=== PATIENT | female | born 1945 | race Two or more races ===

== ENCOUNTER 2024-07-06 07:34 | Day surgery (SDC) | payer MEDICARE, MEDICAID ==
[~2024-07-06] VITALS: Ht 162.6 cm; Wt 77.1 kg
[2024-07-06] VITALS (8 sets, daily range): BP systolic 124–152; BP diastolic 52–106; PULSE 66–82; RESP 12–21; TEMP 98.1; O2SAT 92–100
[~2024-07-06 07:34] MED LIST: BACL10TA PO; GABA-1308 PO; GLIM-38 PO; HYDR-4798 PO; LEVO50TA7 PO; LINA5TAB PO; SIMV40TA18 PO
[2024-07-06] MEDS ORDERED: IODIXANOL 320MG/ML 100ML BTL IV ONE (07:35)
[2024-07-06] MEDS: HYDROcodone-ACET 10/325MG TAB ONE (08:51)
[2024-07-06] MEDS ORDERED: HEPARIN SODIUM (PORCINE) 5000 UNITS/ML 1ML VIAL ONE (11:24)
[2024-07-06] MEDS ORDERED: NITROGLYCERIN 50MG/250ML 250 ML IV ONE (11:25)
[2024-07-06] MEDS ORDERED: VERAPAMIL 2.5MG/ML INJ 2ML VIAL IV ONE (11:25)
[2024-07-06] MEDS ORDERED: ANGIOMAX 250 MG VIAL IV ONE (11:33)
[2024-07-06] MEDS ORDERED: fentaNYL CITRATE 100 MCG/2 ML VL ONE (11:33)
[2024-07-06] MEDS ORDERED: SODIUM CHL 0.9% 50 ML ONE (11:33)
[2024-07-06] MEDS ORDERED: MIDAZOLAM HCL 2MG/2ML 2ml VIAL (1mg/ml) ONE (11:33)
[2024-07-06] MEDS ORDERED: TICAGRELOR 90 MG TAB ONE (12:22)
[2024-07-06] MEDS ORDERED: ASPirin 325 MG TAB ONE (12:22)
== END 2024-07-06 15:00 | disposition home or self-care (01) ==
LOC: CATH 07:34
PROVIDERS: ATTEND Internal Medicine Cardiovascular Disease
DX: I25.10 Atherosclerotic heart disease of native coronary artery without angina pectoris (principal); T82.856A Stenosis of peripheral vascular stent, initial encounter; E03.9 Hypothyroidism, unspecified; E11.51 Type 2 diabetes mellitus with diabetic peripheral angiopathy without gangrene; F17.210 Nicotine dependence, cigarettes, uncomplicated; E11.40 Type 2 diabetes mellitus with diabetic neuropathy, unspecified; Z79.890 Hormone replacement therapy; Z95.5 Presence of coronary angioplasty implant and graft; Y83.8 Other surgical procedures as the cause of abnormal reaction of the patient, or of later complication, without mention of misadventure at the time of the procedure
CPT/HCPCS: 93458; C1725; C1769; C1874; C1894; C9600; J0583; J2250; J3010; J7040; Q9967; 99152; 99153